=== PATIENT | male | born 1950 | race Caucasian/White ===

== ENCOUNTER 2016-09-28 09:44 | Emergency (ER) | payer OTHER, MEDICARE ==
[~2016-09-28] VITALS: Ht 172.7 cm; Wt 86.0 kg
[2016-09-28 09:46] VITALS: BP 142/85; PULSE 86; RESP 20; TEMP 98.2; O2SAT 95
[2016-09-28] MEDS ORDERED: CEPH-460 PO (10:09)
[2016-09-28] MEDS ORDERED: PRED-503 PO (10:09)
[2016-09-28] MEDS ORDERED: BACT800T5 PO (10:09)
--- NOTE | 2016-09-28 10:09 | PD ---
HPI Chief Complaint: Skin Problem Time Seen by Provider: 10:06 Travel History International Travel<30 days: No Contact w/Intl Traveler<30days: No Traveled to known affect area: No History of Present Illness HPI 66-year-old male presents to the emergency Department with complaint of a possible spider bite to his left upper back since Sunday. He said he was sitting on his daughter's wooden porch when he felt something possibly bite him in the area. Reports chills and subjective fever. Has not taken his temperature and cannot report MAXIMUM TEMPERATURE. Reports areas painful. Says it opened up and drained purulent drainage and is now scabbed over. Has been putting cortisone cream to the area. Has been taking prescribed Vicodin for pain. Has no known allergies. No other medical complaints. No other modifying factors or associated signs and symptoms. PFSH Social History Tobacco Use: No Allergies-Medications (Allergen,Severity, Reaction): Coded Allergies: No Known Allergies (Unverified , 09/28/16) Reported Meds & Prescriptions Reported Meds & Active Scripts Active Deltasone (Prednisone) 20 Mg Tab 40 Mg PO DAILY 5 Days Keflex (Cephalexin) 500 Mg Cap 500 Mg PO Q6H 10 Days Bactrim DS (Sulfamethoxazole-Trimethoprim) 800-160 Mg Tab 1 Tab PO BID 10 Days Review of Systems Except as stated in HPI: all other systems reviewed are Neg Physical Exam Narrative GENERAL: Well-nourished, well-developed male patient, in no acute distress; afebrile, nontoxic-appearing SKIN: There is an indurated area to the left lateral upper back which measures about 2 cm in diameter. It is nonfluctuant and there is an open dried area in the middle of a zone of inflammation. No lymphangitis. No lymphadenopathy in the left axilla.. HEAD: Atraumatic. Normocephalic. EYES: Pupils equal and round. No scleral icterus. No injection or drainage. ENT: Mucosa pink and moist. Airway patent. NECK: Trachea midline. CARDIOVASCULAR: Regular rate. RESPIRATORY: No accessory muscle use. GASTROINTESTINAL: Rounded. MUSCULOSKELETAL: No obvious deformities. No clubbing. No cyanosis. No edema. NEUROLOGICAL: Awake and alert. Oriented 3. No obvious cranial nerve deficits. Motor grossly within normal limits. Normal speech. PSYCHIATRIC: Appropriate mood and affect; insight and judgment normal. Data Data Last Documented VS Vital Signs Date Time Temp Pulse Resp B/P Pulse Ox O2 Delivery O2 Flow Rate FiO2 09/28/16 09:46 98.2 86 20 142/85 95 Room Air Orders Tetanus/Diphtheria Tox Adult (Tetanus/Di (09/28/16 10:15) MDM Medical Decision Making Medical Screen Exam Complete: Yes Emergency Medical Condition: Yes Medical Record Reviewed: Yes Differential Diagnosis Spider bite, insect bite, abscess, cellulitis, folliculitis Narrative Course 66-year-old male with a possible insect wound to the left upper back that is indurated, nonfluctuant, and surrounded by a zone of inflammation. No lymphangitis. No lymphadenopathy. Patient is afebrile and nontoxic-appearing. He reports subjective fever. Denies vomiting. Tetanus updated in the ER. Bactrim, Keflex, Deltasone prescribed for home. Instructed patient to follow up with primary care provider. Patient verbalizes understanding and agreement with treatment plan. Patient is medically cleared and stable for discharge. Discussed reasons to return to the emergency department. Patient agrees with treatment plan. The patients vital signs are stable and the patient is stable for outpatient follow-up and treatment. Patient discharged home, stable and in no acute distress. Diagnosis Primary Impression: Infected wound Referrals: Primary Care Physician Patient Instructions: Abscess (ED), Acute Wound Care (ED), General Instructions , Insect Bite or Sting (ED) Additional Instructions: Keep area clean and dry [id number] antibiotic ointment as instructed and as needed for wound care Antibiotics as prescribed Tylenol or ibuprofen as instructed and as needed for pain and inflammation Follow-up with primary care provider Return to the emergency department immediately with worsening of symptoms, particularly as discussed Med/Other Pt SpecificInfo: Prescription(s) given Scripts Prednisone (Deltasone)20 Mg Tab40 Mg PO DAILY 5 Days Ref 0 Prov:Phyllis Jacobs 09/28/16 Cephalexin (Keflex)500 Mg [id number] Mg PO Q6H 10 Days Ref 0 Prov:Phyllis Jacobs 09/28/16 Sulfamethoxazole-Trimethoprim (Bactrim DS)800-160 Mg Tab1 Tab PO BID 10 Days Ref 0 Prov:Phyllis Jacobs 09/28/16 Disposition: 01 DISCHARGE HOME Condition: Stable Phyllis Jacobs Sep 28, 2016 10:09
[2016-09-28] MEDS ORDERED: TETANUS/DIPHTHERIA TOXOID ADULT 0.5 ML VIAL IM ONE (10:15)
== END 2016-09-28 10:26 | disposition home or self-care (01) ==
LOC: NEPK 09:44
DX: L08.89 Other specified local infections of the skin and subcutaneous tissue (principal)
CPT/HCPCS: 90471; 90714